=== PATIENT | male | born 1965 | race Hispanic/Latino ===

== ENCOUNTER 2017-03-22 14:43 | Emergency (ER) | payer MEDICAID ==
[2017-03-22 15:07] VITALS: RESP 18; TEMP 98.9; O2SAT 96; BMI 27.3
--- NOTE | 2017-03-22 16:28 | RAD ---
PROCEDURE: Radiographs of the Left Forearm HISTORY: 2 broken needles in ARM s/p drug use COMPARISON: None available. TECHNIQUE: Frontal and lateral views obtained. FINDINGS: BONES: No fracture or destructive lesion. JOINT SPACES: Unremarkable. OTHER FINDINGS: Linear metallic radiopaque foreign bodies in the ventral soft tissues of proximal forearm, consistent with needles. IMPRESSION: Two needles in ventral soft tissues proximal left forearm.
--- NOTE | 2017-03-22 16:29 | RAD ---
PROCEDURE: Radiographs of the left humerus. HISTORY: broken needle in arm COMPARISON: None. FINDINGS: BONES: Normal. No fracture or focal lesion. SOFT TISSUES: Normal. OTHER FINDINGS: None. IMPRESSION: Normal radiographs of left humerus.
--- NOTE | 2017-03-22 17:10 | ED PDOC ---
Arrival/HPI - General Chief Complaint: Abnormal Skin Integrity Time Seen by Provider: 03/22/17 15:20 Historian: Patient - History of Present Illness Narrative History of Present Illness (Text): 03/22/17 17:06 51-year-old male with a history of IV drug abuse presents today with concerns for broken needle in his skin. Patient states 2 days ago he was using heroin and the needle broke off near the antecubital region. Patient denies fevers or chills. Complaining of minimal pain. Denies numbness weakness or tingling in the extremity. Denies decreased range of motion of the extremity. Patient states one week ago this also happened and he was seen in the Hospital in [place] and they told him that he had a needle in the forearm. Patient states he was told that there was nothing that needed to be done and he was sent home. Time/Duration: Other (2 days ago) Symptom Onset: Sudden Quality: Aching Severity Level: 2 Past Medical History - Provider Review Nursing Documentation Reviewed: Yes - Travel History Have you recently traveled outside [place] w/in the past 3 mons?: No - Tetanus Immunization Tetanus Immunization: Unknown - Cardiac Hx Hypertension: Yes - Psychiatric Hx Substance Use: Yes (heroin, coccain) - Surgical History Other/Comment: hernia sx, Family/Social History - Physician Review Nursing Documentation Reviewed: Yes Family/Social History: Unknown Family HX Smoking Status: Heavy Smoker > 10 Cigarettes Daily Hx Alcohol Use: No Hx Substance Use: Yes (heroin, coccain) Allergies/Home Meds Allergies/Adverse Reactions: Allergies benztropine [From Cogentin] Allergy (Verified 03/22/17 15:08) SHORTNESS OF BREATH chlorpromazine [From Thorazine] Allergy (Verified 03/22/17 15:08) URTICARIA haloperidol [From Haldol] Allergy (Verified 03/22/17 15:08) SHORTNESS OF BREATH phenytoin [From Dilantin] Allergy (Verified 03/22/17 15:08) SHORTNESS OF BREATH Home Medications: Home Meds Medication Instructions Recorded Confirmed Gabapentin [Neurontin] 600 mg PO TID 03/22/17 03/22/17 Lisinopril [Zestril] 5 mg PO DAILY 03/22/17 03/22/17 Review of Systems - Review of Systems Constitutional: absent: Fatigue, Fevers Respiratory: absent: SOB, Cough Cardiovascular: absent: Chest Pain, Palpitations Gastrointestinal: absent: Abdominal Pain, Nausea, Vomiting Musculoskeletal: Arthralgias Skin: Other (fb in left forearm) Neurological: absent: Headache, Dizziness Physical Exam Vital Signs Reviewed: Yes Vital Signs Temp Pulse Resp BP Pulse Ox 03/22/17 18:01 68 18 123/63 96 03/22/17 16:35 71 18 125/65 96 03/22/17 15:01 98.9 F 74 18 127/66 96 Temperature: Afebrile Blood Pressure: Normal Pulse: Regular Respiratory Rate: Normal Appearance: Positive for: Well-Appearing, Non-Toxic, Comfortable Pain Distress: None Mental Status: Positive for: Alert and Oriented X 3 - Systems Exam Head: Present: Atraumatic Mouth: Present: Moist Mucous Membranes Neck: Present: Normal Range of Motion Respiratory/Chest: Present: Clear to Auscultation, Good Air Exchange. No: Respiratory Distress, Accessory Muscle Use Cardiovascular: Present: Regular Rate and Rhythm, Normal S1, S2. No: Murmurs Upper Extremity: Present: Normal ROM, NORMAL PULSES, Neurovascularly Intact, Capillary Refill < 2s, Other (+ tract mcrae noted to left forearm and anticubital region; no palpable fb noted. no abscess or erythema noted. no edema. sensation and distal pulses intact; cap refill <2. full rom of entire extremity. ). No: Tenderness, Swelling, Erythema, Deformity Neurological: Present: GCS=15, Speech Normal Skin: Present: Warm, Dry Psychiatric: Present: Alert, Oriented x 3 Medical Decision Making ED Course and Treatment: 03/22/17 17:09 51-year-old male with a history of IV drug abuse presents today with concerns for broken needle in the left arm X-rays of the forearm shows 2 metallic foreign bodies within the volar aspect of the left forearm X-rays of the humerus within normal limits Case was discussed with Dr. Bowie: d/c home f/u in the clinic for evaluation and possible removal. Patient seen and evaluated by surgical brace maker dr. Cavazos; no palpable fb. pt to f/u in surgical clinic. tetanus updated bactrim keflex motrin all results discussed with patient. We will discharge the patient home with antibiotics. Advised follow-up in the surgical clinic [facility].. Advised pt to return if symptoms worsen persist or if new concerning symptoms develop. stressed importance of close f/u and immediate return. advised repeat xrays. Patient verbalized full agreement with and understanding of discharge instructions. States that he agrees with the plan and disposition. Verbalized and repeated discharge instructions and plan. I have given the patient opportunity to ask any additional questions. all aspects of this case were discussed the attending of record. Impression: Foreign body skin Motrin every 6 hours as needed for pain Bactrim 1 tablet twice daily 7 days Keflex 1 capsule 4 times daily 7 days Follow-up with primary care physician within the next 2 days Follow-up with the surgical clinic within the next 2 days Return immediately if symptoms worsen persist or if new concerning symptoms develop high fevers, increasing pain, increasing redness, increasing swelling, purulent discharge - RAD Interpretation Radiology Orders: 03/22/17 15:20 FOREARM LEFT [RAD] Stat HUMERUS LEFT [RAD] Stat - Medication Orders Current Medication Orders: Discontinued Medications Cephalexin Monohydrate (Keflex) 500 mg PO STAT STA PRN Reason: Protocol Stop: 03/22/17 17:57 Ibuprofen (Motrin Tab) 600 mg PO STAT STA Stop: 03/22/17 18:02 Tetanus/Reduced Diphtheria/Acell Pertussis (Boostrix Vaccine Inj) 0.5 ml IM .ONCE ONE Stop: 03/22/17 17:58 Trimethoprim/Sulfamethoxazole (Bactrim Ds Tab) 1 tab PO STAT STA PRN Reason: Protocol Stop: 03/22/17 17:57 Disposition/Present on Arrival - Present on Arrival Any Indicators Present on Arrival: No History of DVT/PE: No History of Uncontrolled Diabetes: No Urinary Catheter: No History of Decub. Ulcer: No History Surgical Site Infection Following: None - Disposition Have Diagnosis and Disposition been Completed?: Yes Diagnosis: Foreign body in soft tissue Disposition: HOME/ ROUTINE Disposition Time: 17:10 Patient Plan: Discharge Patient Problems: Current Active Problems Problem Status Onset Foreign body in soft tissue Acute Condition: GOOD Discharge Instructions (ExitCare): Soft Tissue Foreign Body (ED) Additional Instructions: Motrin every 6 hours as needed for pain Bactrim 1 tablet twice daily 7 days Keflex 1 capsule 4 times daily 7 days Follow-up with primary care physician within the next 2 days Follow-up with the surgical clinic within the next 2 days Return immediately if symptoms worsen persist or if new concerning symptoms develop high fevers, increasing pain, increasing redness, increasing swelling, purulent discharge Prescriptions: Cephalexin [Keflex] 500 mg PO QID #28 capsule Ibuprofen [Motrin] 600 mg PO Q6H PRN #20 tab PRN Reason: pain/fever reduction Sulfamethoxazole/Trimethoprim [Bactrim DS 800 mg-160 mg] 1 tab PO BID #14 tab Referrals: Jim Bowie MD [Staff Provider] - [place] up with [place] [facility] [place] [facility] [place] - Follow up with primary Forms: WORK NOTE
[2017-03-22] MEDS ORDERED: Tmp-Smz 800 mg-160 mg DS Tab PO STA (17:56)
[2017-03-22] MEDS ORDERED: TDAP Vaccine 0.5 mL Syr IM ONE (17:57)
[2017-03-22 18:04] VITALS: BP 123/63; PULSE 68
--- NOTE | 2017-03-22 18:39 | CP.PCM.CON ---
History of Present Illness - History of Present Illness History of Present Illness: General Surgery Consult- Dr. Bowie 51M hx of IV drug abuse presents today with concerns for broken needle in his skin. Patient states 2 days ago he was using heroin and the needle broke off near the antecubital region. Patient denies fevers or chills. Complaining of minimal pain. Denies numbness weakness or tingling in the extremity. Denies decreased range of motion of the extremity. Patient states one week ago this also happened and he was seen in the Hospital in [place] and they told him that he had a needle in the forearm. Patient states he was told that there was nothing that needed to be done and he was sent home. PMHx: none PSH: None ALL: Phenytoin, haloperidol, chlopromazine, benztropine Socialhx: cocaine and heroin use. smoker 2ppd Past Patient History - Tetanus Immunizations Tetanus Immunization: Unknown - Past Social History Smoking Status: Heavy Smoker > 10 Cigarettes Daily - CARDIAC Hx Hypertension: Yes - PSYCHIATRIC Hx Substance Use: Yes (heroin, coccain) - SURGICAL HISTORY Other/Comment: hernia sx, Meds Home Medications: Home Medication List Medication Instructions Recorded Confirmed Type Cephalexin [Keflex] 500 mg PO QID #28 capsule 03/22/17 Rx Ibuprofen [Motrin] 600 mg PO Q6H PRN #20 tab 03/22/17 Rx Sulfamethoxazole/Trimethoprim 1 tab PO BID #14 tab 03/22/17 Rx [Bactrim DS 800 mg-160 mg] Allergies/Adverse Reactions: Allergies Allergy/AdvReac Type Severity Reaction Status Date / Time benztropine [From Cogentin] Allergy SHORTNESS Verified 03/22/17 15:08 OF BREATH chlorpromazine Allergy URTICARIA Verified 03/22/17 15:08 [From Thorazine] haloperidol [From Haldol] Allergy SHORTNESS Verified 03/22/17 15:08 OF BREATH phenytoin [From Dilantin] Allergy SHORTNESS Verified 03/22/17 15:08 OF BREATH Physical Exam - Constitutional Appears: Unkempt, Agitated, Confused - Eye Exam Eye Exam: EOMI. absent: PERRL - ENT Exam ENT Exam: Mucous Membranes Moist - Respiratory Exam Respiratory Exam: Clear to Auscultation Bilateral, NORMAL BREATHING PATTERN. absent: Accessory Muscle Use, Wheezes - Cardiovascular Exam Cardiovascular Exam: REGULAR RHYTHM, +S1, +S2 - Rectal Exam Rectal Exam: Deferred - Extremities Exam Additional comments: left anticubetal fossa burising from needle use. - Neurological Exam Neurological exam: Alert, Oriented x3 - Skin Additional comments: non-palpable needle Results - Vital Signs Recent Vital Signs: Last Vital Signs Temp 98.9 F 03/22/17 15:01 Pulse 68 03/22/17 18:01 Resp 18 03/22/17 18:01 BP 123/63 03/22/17 18:01 Pulse Ox 96 03/22/17 18:01 Assessment & Plan - Assessment and Plan (Free Text) Assessment: 51M hx of substance abuse presents with foreign body in Left arm Plan: - pt neurovascular intact - Xray shows two needles in arm. - attempted to palpate and use US to extract the needle at bedside. Needle was not visible by US - Pt is stable and neurovascular intact - sent home on abx - f/u as outpt D/W Dr. Jamir Cavazos PGY1 - Date & Time Date: 03/22/17 Time: 15:30
== END 2017-03-22 18:21 | disposition home or self-care (01) ==
LOC: ED 14:43
DX: S50.852A Superficial foreign body of left forearm, initial encounter (principal); X58.XXXA Exposure to other specified factors, initial encounter; Z23 Encounter for immunization; F17.210 Nicotine dependence, cigarettes, uncomplicated

== ENCOUNTER 2018-06-10 07:46 | Emergency (ER) | payer MEDICAID ==
[2018-06-10 07:51] VITALS: RESP 18; TEMP 98.2
[2018-06-10 07:56] VITALS: BMI 25.8
--- NOTE | 2018-06-10 09:08 | ED PDOC ---
Arrival/HPI - General Chief Complaint: Male Genitourinary Time Seen by Provider: 06/10/18 07:47 Historian: Patient - History of Present Illness Narrative History of Present Illness (Text): 06/10/18 08:25 52 M, whose past medical history includes hypertension and IV drug abuse, who presents to the Emergency department with cc of urinary retention. Patient reports last urination was at 03:00 this morning, and has not urinated since. Patient states his bladder feels full and notes he has not been able to urinate. Patient had a penile implant on 04/12/18. Patient denies any other complaints. Urologist: Dr. Connolly ([place], [place]) Time/Duration: Other (notes his last urination was 03:00 this morning, states bladder feels full. ) Symptom Onset: Sudden Symptom Course: Unchanged Activities at Onset: Light Past Medical History - Provider Review Nursing Documentation Reviewed: Yes - Infectious Disease Hx of Infectious Diseases: None - Tetanus Immunization Tetanus Immunization: Unknown - Cardiac Hx Hypertension: Yes - Genitourinary/Gynecological Other/Comment: penile implant - Psychiatric Hx Substance Use: Yes (heroin, coccain) - Surgical History Other/Comment: hernia sx, - Anesthesia Hx Anesthesia Reactions: No Family/Social History - Physician Review Nursing Documentation Reviewed: Yes Family/Social History: No Known Family HX Smoking Status: Heavy Smoker > 10 Cigarettes Daily Hx Alcohol Use: No Hx Substance Use: Yes (heroin, coccain) Allergies/Home Meds Allergies/Adverse Reactions: Allergies benztropine [From Cogentin] Allergy (Verified 06/10/18 07:56) SHORTNESS OF BREATH chlorpromazine [From Thorazine] Allergy (Verified 06/10/18 07:56) URTICARIA haloperidol [From Haldol] Allergy (Verified 06/10/18 07:56) SHORTNESS OF BREATH phenytoin [From Dilantin] Allergy (Verified 06/10/18 07:56) SHORTNESS OF BREATH Home Medications: Home Meds Medication Instructions Recorded Confirmed Gabapentin [Neurontin] 600 mg PO TID 03/22/17 03/22/17 Lisinopril [Zestril] 5 mg PO DAILY 03/22/17 03/22/17 Review of Systems - Physician Review All systems were reviewed & negative as marked: Yes (All other systems negative except that noted in the HPI.) Physical Exam - Physical Exam Narrative Physical Exam (Text): 06/10/18 08:25 Gen: VS reviewed, alert, well developed, well nourished, nontoxic, mild distress. ENT: normal pharynx Eye: EOMI, PERRL Neck: no JVD, supple, no adenopathy CV: regular rate, regular rhythm, no rubs, no murmer, no gallops, S1, S2, pulses equal and strong Pulm: no distress, clear to auscultation, no wheeze, no rhonci, breath sounds equal, no rales Abd: soft, nontender, no guarding, no rebound, no rigidity, normal bowel sounds Ext: no edema Skin: good color, no rash, no cyanosis Psych: responds appropriately to questions, normal affect Neuro: oriented x3, CN2-12 intact grossly, motor intact, sensation intact. Very small urethral opening. No redness around genital area. No tenderness around genital area. Vital Signs Reviewed: Yes Vital Signs Temp Pulse Resp BP Pulse Ox 06/10/18 07:49 98.2 F 81 18 189/109 H 97 Temperature: Afebrile Blood Pressure: Hypertensive (at 189/109) Pulse: Regular Respiratory Rate: Normal Appearance: Positive for: Well-Appearing, Non-Toxic Pain Distress: Mild Mental Status: Positive for: Alert and Oriented X 3 Medical Decision Making ED Course and Treatment: 06/10/18 08:25 Impression: Differential Diagnosis included but are not limited to: Plan: -- BMP -- CBC (with differential) -- Bladder scan -- Morphine -- Reassess and disposition Prior Visits: Notes and results from previous visits were reviewed. Progress Notes: 06/10/18 08:40 president and chief commercial officer is at bedside for evaluation. 06/10/18 09:13 Pt appears to be very uncomfortable during procedure. Dose of Morphine ordered for analgesia. Asked nurse to please administer expeditiously. 06/10/18 09:47 avalos catheter placed by surgical residents under the supervision of dr. mccollum. patient reported resolution of pain. patient is already taking po antibiotics for uti. methadone dose confirmed by clinic to be 180mg daily. patient will make an immediate follow up with his regular urologist. 06/10/18 10:15 the discussed methadone dose was only discussed in reference to the patient, not the patient's female significant other. the patient's methadone dose was confirmed at clinic and ordered to be given to the patient. - Scribe Statement The provider has reviewed the documentation as recorded by the Gennyibe [place] All medical record entries made by the Gennyibe were at my direction and personally dictated by me. I have reviewed the chart and agree that the record accurately reflects my personal performance of the history, physical exam, medical decision making, and the department course for this patient. I have also personally directed, reviewed, and agree with the discharge instructions and disposition. Disposition/Present on Arrival - Present on Arrival Any Indicators Present on Arrival: No History of DVT/PE: No History of Uncontrolled Diabetes: No Urinary Catheter: No History of Decub. Ulcer: No History Surgical Site Infection Following: None - Disposition Have Diagnosis and Disposition been Completed?: Yes Diagnosis: Urine retention Disposition: HOME/ ROUTINE Disposition Time: 09:48 Patient Plan: Discharge Patient Problems: Current Active Problems Problem Status Onset Urine retention Acute Condition: STABLE Discharge Instructions (ExitCare): Urinary Retention Additional Instructions: Follow up with your urologist as soon as possible. Follow up with your primary care doctor to recheck your elevated blood pressure. ARMAAN OLGUIN, thank you for letting us take care of you today. Your provider was Dr. Juan Luis Fernández and you were treated for URINARY RETENTION. The [facility] medical care you received today was directed at your acute symptoms. If you were prescribed any medication, please fill it and take as directed. It may take several days for your symptoms to resolve. Return to the Emergency Department if your symptoms worsen, do not improve, or if you have any other problems. Please contact your doctor or call one of the physicians/clinics you have been referred to that are listed on the Patient Visit Information form that is included in your discharge packet. Bring any paperwork you were given at discharge with you along with any medications you are taking to your follow up visit. Our treatment cannot replace ongoing medical care by a primary care provider outside of the emergency department. Thank you for allowing the [facility] team to be part of your care today. If you had an X-Ray or CT scan: A Radiologist will review the ED reading if any change in treatment is needed we will contact you. If you had a blood, urine, or wound culture: It will take several days for the results, if any change in treatment is needed we will contact you. If you had an STI test: It will take 48 hours for the results. Please call after 1 week if you have not heard back. Forms: Sonora Leather (Irish)
[2018-06-10] MEDS ORDERED: Morphine 4 mg/ml ISec IVP STA (09:13)
[2018-06-10] MEDS ORDERED: Morphine 4 mg/ml ISec ONE (09:17)
[2018-06-10 09:30] LABS: BASO # 0.02 K/mm3 (0.0-2.0); BASO % 0.2 % (0.0-3.0); EOS % 0.4 % (1.5-5.0); GRAN # 6.87 (1.4-6.5); GRAN % 73.4 % (50.0-68.0); HEMOGLOBIN 15.3 g/dL (14.0-18.0); LYMPH % 20.9 % (22.0-35.0); MEAN CELL VOLUME 88.2 fl (80.0-105.0); MEAN CORPUSCULAR HEMOGLOBIN 30.2 pg (25.0-35.0); MEAN CORPUSCULAR HGB CONC 34.2 g/dl (31.0-37.0); MEAN PLATELET VOLUME 9.6 fl (7.0-11.0); MONO # 0.5 (0.1-0.6); MONO % 5.1 % (1.0-6.0); RBC 5.07 10^6/uL (3.5-6.1); RED CELL DISTRIBUTION WIDTH 13.4 % (11.5-14.5); WHITE BLOOD COUNT 9.4 10^3/ul (4.5-11.0)
[2018-06-10 09:40] LABS: BLOOD UREA NITROGEN 12 mg/dL (7-21); CALCIUM 9.8 mg/dL (8.4-10.5); GFR NON-AFRICAN AMERICAN > 60
[2018-06-10 09:48] VITALS: BP 182/100; PULSE 98; O2SAT 99
== END 2018-06-10 10:25 | disposition home or self-care (01) ==
LOC: ED 07:46
DX: R33.9 Retention of urine, unspecified (principal)
CPT/HCPCS: 80048; 85025; 96374; 99284; J2270

== ENCOUNTER 2018-06-10 11:32 | Emergency (ER) | payer MEDICAID ==
[2018-06-10 11:33] VITALS: BMI 25.8
[2018-06-10 11:45] VITALS: RESP 20
--- NOTE | 2018-06-10 11:50 | CP.PCM.CON ---
History of Present Illness - History of Present Illness History of Present Illness: Surgery: Dr. Randolph Reason for consult: urinary retention and urethral stricture 52 y/o male pmhx of opioids abuse and dependence currently on methadone with recent placement of penile prosthesis in March 2018 presents complaining of severe pain at the tip of his penis and urinary retention since 3am. Patient states he was unable to void since 3am. He reports manipulating the prosthesis this am in attempts to assist with voiding and felt a "pop"/burst sensation. He did have the prosthesis completely deflated. He denies f/c/n/v/. Per patient he has been told he has a urethral stricture in the past, requiring dilation during penile prosthesis procedure for avalos. Review of Systems - Review of Systems All systems: reviewed and no additional remarkable complaints except Review of Systems: unless stated in HPI Past Patient History - Infectious Disease Hx of Infectious Diseases: None - Tetanus Immunizations Tetanus Immunization: Unknown - Past Social History Smoking Status: Heavy Smoker > 10 Cigarettes Daily - CARDIAC Hx Hypertension: Yes - GENITOURINARY/GYNECOLOGICAL Other/Comment: penile implant - PSYCHIATRIC Hx Substance Use: Yes (heroin, coccain) - SURGICAL HISTORY Other/Comment: hernia sx, - ANESTHESIA Hx Anesthesia Reactions: No Meds Allergies/Adverse Reactions: Allergies Allergy/AdvReac Type Severity Reaction Status Date / Time benztropine [From Cogentin] Allergy SHORTNESS Verified 06/10/18 07:56 OF BREATH chlorpromazine Allergy URTICARIA Verified 06/10/18 07:56 [From Thorazine] haloperidol [From Haldol] Allergy SHORTNESS Verified 06/10/18 07:56 OF BREATH phenytoin [From Dilantin] Allergy SHORTNESS Verified 06/10/18 07:56 OF BREATH Physical Exam - Constitutional Appears: In Acute Distress - Head Exam Head Exam: ATRAUMATIC, NORMOCEPHALIC - Eye Exam Eye Exam: EOMI, Normal appearance - ENT Exam ENT Exam: Mucous Membranes Moist - Respiratory Exam Respiratory Exam: NORMAL BREATHING PATTERN. absent: Respiratory Distress - Cardiovascular Exam Cardiovascular Exam: REGULAR RHYTHM. absent: Tachycardia - Exam Exam: Circumcision, Bladder Distension. absent: Scrotal Swelling (no thethering of prosthesis to the scrotum, penile shaft implant deflated), Testicular Tenderness, Uretheral Discharge Assessment & Plan - Assessment and Plan (Free Text) Assessment: 52 y/o male w/ malfunctioning penile prosthesis, no sign of infection, with urethral stricture and urinary retention 2/2 to above Plan: -urethral stricture dilated with mosquito clamp and 10Fr avalos placed, clear yellow urine returned, no hematuria -patient instructed to f/u with primary urologist as soon as possible, being today or tomorrow for further evaluation -Urologist Dr. Prashant Connolly in the [place] -d/c patient with leg bag to continue urinary drainage until seen by primary urologist -recommend Keflex upon d/c -d/w ED attending Dr. Fernández and urologist Dr. Tomasa Dee PGY4 - Date & Time Date: 06/10/18 Time: 09:00
[2018-06-10] MEDS ORDERED: Morphine 4 mg/ml ISec IM STA ×2 (12:48→14:23)
--- NOTE | 2018-06-10 13:32 | ED PDOC ---
Arrival/HPI - General Chief Complaint: Male Genitourinary Time Seen by Provider: 06/10/18 12:30 Historian: Patient - History of Present Illness Narrative History of Present Illness (Text): 06/10/18 12:40 52 M, returns to the Emergency department after self removal of Avalos catheter that was inserted about 1 hour prior to arrival. Patient presented to the Emergency department this morning for urine retention and was discharged at 09:48 after FC was inserted. Patient states he pulled his FC out of place and is in pain. Patient denies any other complaints. Time/Duration: Prior to Arrival (pt returned to Emergency department after self removal of FC ) Symptom Onset: Sudden Symptom Course: Unchanged Activities at Onset: Other (self removal of FC ) Past Medical History - Provider Review Nursing Documentation Reviewed: Yes - Infectious Disease Hx of Infectious Diseases: None - Tetanus Immunization Tetanus Immunization: Unknown - Cardiac Hx Hypertension: Yes - Pulmonary Hx Respiratory Disorders: No - Neurological Hx Neurological Disorder: No - Genitourinary/Gynecological Other/Comment: penile implant - Psychiatric Hx Substance Use: Yes (heroin, coccain) - Surgical History Other/Comment: hernia sx, - Anesthesia Hx Anesthesia Reactions: No Family/Social History - Physician Review Nursing Documentation Reviewed: Yes Family/Social History: No Known Family HX Smoking Status: Heavy Smoker > 10 Cigarettes Daily Hx Alcohol Use: No Hx Substance Use: Yes (heroin, coccain) Allergies/Home Meds Allergies/Adverse Reactions: Allergies benztropine [From Cogentin] Allergy (Verified 06/10/18 07:56) SHORTNESS OF BREATH chlorpromazine [From Thorazine] Allergy (Verified 06/10/18 07:56) URTICARIA haloperidol [From Haldol] Allergy (Verified 06/10/18 07:56) SHORTNESS OF BREATH phenytoin [From Dilantin] Allergy (Verified 06/10/18 07:56) SHORTNESS OF BREATH Home Medications: Home Meds Medication Instructions Recorded Confirmed Gabapentin [Neurontin] 600 mg PO TID 03/22/17 03/22/17 Lisinopril [Zestril] 5 mg PO DAILY 03/22/17 03/22/17 Review of Systems - Physician Review All systems were reviewed & negative as marked: Yes (All other systems negative except that noted in the HPI.) Physical Exam - Physical Exam Narrative Physical Exam (Text): 06/10/18 12:40 Gen: VS reviewed, alert, well developed, well nourished, nontoxic, mild distress. ENT: normal pharynx Eye: EOMI, PERRL Neck: no JVD, supple, no adenopathy CV: regular rate, regular rhythm, no rubs, no murmer, no gallops, S1, S2, pulses equal and strong Pulm: no distress, clear to auscultation, no wheeze, no rhonci, breath sounds equal, no rales Abd: soft, nontender, no guarding, no rebound, no rigidity, normal bowel sounds Ext: no edema. Genitourinary: FC is in place. It is draining clear urine. Skin: good color, no rash, no cyanosis Psych: responds appropriately to questions, normal affect Neuro: oriented x3, CN2-12 intact grossly, motor intact, sensation intact Vital Signs Reviewed: Yes Vital Signs Temp Pulse Resp BP Pulse Ox 06/10/18 11:37 97.8 F 102 H 20 152/98 H 98 06/10/18 11:33 97.8 F 102 H 20 152/98 H 98 Temperature: Afebrile Blood Pressure: Hypertensive (at 152/98) Pulse: Tachycardic (at 102) Respiratory Rate: Normal Appearance: Positive for: Well-Appearing, Non-Toxic Pain Distress: Mild Mental Status: Positive for: Alert and Oriented X 3 Medical Decision Making ED Course and Treatment: 06/10/18 12:40 Impression: Differential Diagnosis included but are not limited to: Plan: -- Morphine -- Pack ice - LG/SM routine -- Reassess and disposition Prior Visits: Notes and results from previous visits were reviewed. Patient was last seen in the emergency department earlier today morning 06/10/18 for urinary retention. Patient was discharged home in stable condition and directed to follow up with his Urologist as soon as possible. Progress Notes: 06/10/18 14:15 events: patient came to the ED because he attempted to rip out his avalos catheter. patient states at that time there was transient blood coming from the catheter. upon arrival to the ED, there was no blood noted around the catheter or inside the urine bag. in fact, the catheter was draining urine appropriately but was disconnected from the collection bag (this is was disconnected prior to my eval). urology, dr. mccollum was contacted and at that time it was agreed that since the avalos was appropriately drainaing urine, there was no indication to alter management. moments later, the patient was complaining that blood is coming from the tube but the blood that is seen on the bed stretcher, it is unclear if the blood was coming from the catheter or the urethra on repeat inspection. dr. mccollum was contacted again and he recommended to remove the avalos catheter. dr. mccollum states that he is willing to see the patient in the ED but is currently help up with office patients. i went back to explain this to the patient and he states he is willing to wait for the urologist. i told the patient that i need to remove the catheter but he clearly refused removal of the catheter. 06/10/18 15:44 patient left the ED, walked out. i did not witness the patient leaving the ED. - Medication Orders Current Medication Orders: Discontinued Medications Morphine Sulfate (Morphine) 2 mg IM STAT STA Stop: 06/10/18 12:49 Last Admin: 06/10/18 13:06 Dose: 2 mg [facility] Pain Assessment Document 06/10/18 13:06 [facility] (Rec: 06/10/18 13:07 [id number] Pain Reassessment Is this a pain reassessment? Yes IM Administration Charges Document 06/10/18 13:06 [facility] (Rec: 06/10/18 13:07 [id number] Charges for Administration # of IM Administrations 1 - Scribe Statement The provider has reviewed the documentation as recorded by the Scribe [place] All medical record entries made by the Scribe were at my direction and personally dictated by me. I have reviewed the chart and agree that the record accurately reflects my personal performance of the history, physical exam, medical decision making, and the department course for this patient. I have also personally directed, reviewed, and agree with the discharge instructions and disposition. Disposition/Present on Arrival - Present on Arrival Any Indicators Present on Arrival: No History of DVT/PE: No History of Uncontrolled Diabetes: No Urinary Catheter: No History of Decub. Ulcer: No History Surgical Site Infection Following: None - Disposition Have Diagnosis and Disposition been Completed?: Yes Diagnosis: Internal injury, urethra, closed Disposition: ELOPEMENT - ER ONLY Disposition Time: 19:18 Condition: STABLE Forms: [employer] (Yakut)
[2018-06-10 15:47] VITALS: BP 160/84; PULSE 96; TEMP 98.5; O2SAT 96
== END 2018-06-10 15:00 | disposition left against medical advice (07) ==
LOC: ED 11:32
DX: S37.30XA Unspecified injury of urethra, initial encounter (principal); Y84.8 Other medical procedures as the cause of abnormal reaction of the patient, or of later complication, without mention of misadventure at the time of the procedure; Y92.89 Other specified places as the place of occurrence of the external cause
CPT/HCPCS: 96372; 99283; J2270

== ENCOUNTER 2018-07-07 04:06 | Emergency (ER) | payer MEDICAID ==
[2018-07-07 04:15] VITALS: RESP 18; TEMP 98.8; BMI 24.2
--- NOTE | 2018-07-07 04:27 | ED PDOC ---
Arrival/HPI - General Chief Complaint: Seizure Time Seen by Provider: 07/07/18 04:15 Historian: Patient - History of Present Illness Narrative History of Present Illness (Text): 07/07/18 04:27 53 year old male, whose past medical history includes IDDM, IV drug abuse, Hypertension, Epilepsy, and Seizure disorder (Klonipan 2mg), presents to the emergency department s/p unwitnessed seizure in [facility]. Patient states he fell back and hit his head, but denies any loss of consciousness. Patient reports he missed his dose of Klonipan today and did not eat at all. He admits to drinking Vodka and a couple beers tonight. The patient denies any fever, chills, chest pain, shortness of breath, abdominal pain, nausea, vomiting, diarrhea, urinary symptoms, back pain, neck pain, headache, dizziness, or any other complaints. Time/Duration: Prior to Arrival Symptom Onset: Sudden Symptom Course: Improving Activities at Onset: Light Context: Walking, Street Past Medical History - Provider Review Nursing Documentation Reviewed: Yes - Infectious Disease Hx of Infectious Diseases: None - Tetanus Immunization Tetanus Immunization: Unknown - Cardiac Hx Hypertension: Yes - Pulmonary Hx Respiratory Disorders: No - Neurological Hx Neurological Disorder: No Hx Seizures: Yes - Genitourinary/Gynecological Other/Comment: penile implant - Psychiatric Hx Substance Use: Yes (heroin, coccain) - Surgical History Other/Comment: hernia sx, - Anesthesia Hx Anesthesia Reactions: No Family/Social History - Physician Review Nursing Documentation Reviewed: Yes Family/Social History: No Known Family HX Smoking Status: Heavy Smoker > 10 Cigarettes Daily Hx Alcohol Use: No Hx Substance Use: Yes (heroin, coccain) Allergies/Home Meds Allergies/Adverse Reactions: Allergies benztropine [From Cogentin] Allergy (Verified 06/10/18 07:56) SHORTNESS OF BREATH chlorpromazine [From Thorazine] Allergy (Verified 06/10/18 07:56) URTICARIA haloperidol [From Haldol] Allergy (Verified 06/10/18 07:56) SHORTNESS OF BREATH phenytoin [From Dilantin] Allergy (Verified 06/10/18 07:56) SHORTNESS OF BREATH Home Medications: Home Meds Medication Instructions Recorded Confirmed Gabapentin [Neurontin] 600 mg PO TID 03/22/17 07/07/18 RX: Lisinopril [Zestril] 5 mg PO DAILY 03/22/17 07/07/18 Clonazepam [Klonopin] 2 mg PO DAILY 07/07/18 07/07/18 Review of Systems - Physician Review All systems were reviewed & negative as marked: Yes - Review of Systems Constitutional: absent: Fevers, Other (Chills) Respiratory: absent: SOB Cardiovascular: absent: Chest Pain Gastrointestinal: absent: Abdominal Pain, Diarrhea, Nausea, Vomiting Genitourinary Male: absent: Frequency Musculoskeletal: absent: Back Pain, Neck Pain Neurological: Seizure. absent: Headache, Dizziness Physical Exam Vital Signs Reviewed: Yes Vital Signs Temp Pulse Resp BP Pulse Ox 07/07/18 04:09 98.8 F 76 18 172/96 H 95 Temperature: Afebrile Blood Pressure: Hypertensive Pulse: Regular Respiratory Rate: Normal Appearance: Positive for: Well-Appearing, Non-Toxic, Comfortable Pain Distress: None Mental Status: Positive for: Alert and Oriented X 3 - Systems Exam Head: Present: Atraumatic, Normocephalic, Other (hematoma on the optical area of head.) Pupils: Present: PERRL Extroacular Muscles: Present: EOMI Conjunctiva: Present: Normal Mouth: Present: Moist Mucous Membranes Neck: Present: Normal Range of Motion Respiratory/Chest: Present: Clear to Auscultation, Good Air Exchange. No: Respiratory Distress, Accessory Muscle Use Cardiovascular: Present: Regular Rate and Rhythm, Normal S1, S2. No: Murmurs Abdomen: No: Tenderness, Distention, Peritoneal Signs Back: Present: Normal Inspection Upper Extremity: Present: Normal Inspection. No: Cyanosis, Edema Lower Extremity: Present: Normal Inspection. No: Edema Neurological: Present: GCS=15, CN II-XII Intact, Speech Normal Skin: Present: Warm, Dry, Normal Color. No: Rashes Psychiatric: Present: Alert, Oriented x 3, Normal Insight, Normal Concentration Medical Decision Making ED Course and Treatment: 07/07/18 04:27 Impression: 53 year old male presents s/p seizure episode. Patient did not take his dose of Klonipan today. Plan: -- CT Head w/o contrast -- Labs -- Tylenol -- Reassess and disposition Prior Visits: Notes and results from previous visits were reviewed. Progress Notes: EXAM: CT SCAN OF THE BRAIN WITHOUT IV CONTRAST Electronically signed on Jul 07, 2018 5:39:17 AM EST by: Con Linn M.D IMPRESSION: Normal unenhanced CT scan of the brain. - Lab Interpretations I have reviewed the lab results: Yes - Scribe Statement The provider has reviewed the documentation as recorded by the Gennyibe Denise Aquino Provider Scribe Attestation: All medical record entries made by the Scribe were at my direction and personally dictated by me. I have reviewed the chart and agree that the record accurately reflects my personal performance of the history, physical exam, medical decision making, and the department course for this patient. I have also personally directed, reviewed, and agree with the discharge instructions and disposition. Disposition/Present on Arrival - Present on Arrival Any Indicators Present on Arrival: No History of DVT/PE: No History of Uncontrolled Diabetes: No Urinary Catheter: No History of Decub. Ulcer: No History Surgical Site Infection Following: None - Disposition Have Diagnosis and Disposition been Completed?: Yes Diagnosis: Seizure Disposition: HOME/ ROUTINE Disposition Time: 06:30 Condition: GOOD Discharge Instructions (ExitCare): Seizures, Adult (DC) Forms: [employer] (Irish)
[2018-07-07 04:57] LABS: BASO # 0.02 K/mm3 (0.0-2.0); BASO % 0.2 % (0.0-3.0); EOS # 0.1 (0.0-0.7); EOS % 0.6 % (1.5-5.0); GRAN # 5.35 (1.4-6.5); GRAN % 63.7 % (50.0-68.0); HEMOGLOBIN 13.8 g/dL (14.0-18.0); LYMPH # 2.6 (1.2-3.4); LYMPH % 30.4 % (22.0-35.0); MEAN CELL VOLUME 87.6 fl (80.0-105.0); MEAN CORPUSCULAR HEMOGLOBIN 29.6 pg (25.0-35.0); MEAN CORPUSCULAR HGB CONC 33.8 g/dl (31.0-37.0); MEAN PLATELET VOLUME 9.5 fl (7.0-11.0); MONO # 0.4 (0.1-0.6); MONO % 5.1 % (1.0-6.0); RBC 4.66 10^6/uL (3.5-6.1); WHITE BLOOD COUNT 8.4 10^3/uL (4.5-11.0)
[2018-07-07 05:40] LABS: BLOOD UREA NITROGEN 12 mg/dL (7-21); CALCIUM 8.9 mg/dL (8.4-10.5); GFR NON-AFRICAN AMERICAN > 60
[2018-07-07 05:41] LABS: ALB/GLOB RATIO 1.3 (1.1-1.8); ALBUMIN 4.3 g/dL (3.0-4.8); ALT/SGPT 32 U/L (7-56); AST/SGOT 40 U/L (17-59)
[2018-07-07 07:31] VITALS: BP 154/85; PULSE 75; O2SAT 100
--- NOTE | 2018-07-07 09:28 | CT ---
Date of service: 07/07/2018 PROCEDURE: CT HEAD WITHOUT CONTRAST. HISTORY: seizure COMPARISON: None available. TECHNIQUE: Axial computed tomography images were obtained through the head/brain without intravenous contrast. Radiation dose: Total exam DLP = 868.0 mGy-cm. This CT exam was performed using one or more of the following dose reduction techniques: Automated exposure control, adjustment of the mA and/or kV according to patient size, and/or use of iterative reconstruction technique. FINDINGS: HEMORRHAGE: No intracranial hemorrhage. BRAIN: No mass effect or edema. No atrophy or chronic microvascular ischemic changes. VENTRICLES: Unremarkable. No hydrocephalus. CALVARIUM: Unremarkable. PARANASAL SINUSES: Unremarkable as visualized. No significant inflammatory changes. MASTOID AIR CELLS: Unremarkable as visualized. No inflammatory changes. OTHER FINDINGS: The report concurs with the preliminary [facility] report IMPRESSION: No acute intracranial findings
== END 2018-07-07 06:45 | disposition home or self-care (01) ==
LOC: ED 04:06
DX: R56.9 Unspecified convulsions (principal); I10 Essential (primary) hypertension; E11.9 Type 2 diabetes mellitus without complications; Z79.4 Long term (current) use of insulin; F17.210 Nicotine dependence, cigarettes, uncomplicated